=== PATIENT | female | born 1955 | race Caucasian/White ===

== ENCOUNTER 2016-12-09 16:06 | Inpatient (IN) | payer MEDICAID ==
[~2016-12-09] VITALS: Ht 152.4 cm; Wt 55.9 kg
[2016-12-09 17:31] LABS: BASOPHIL % 0.5 % (0-2); PLATELET COUNT 241 x10^3mcL (130-400); RED CELL DISTRIBUTION WIDTH 14.3 % (11.5-14.5)
[2016-12-09 17:37] LABS: CALCIUM 9.4 mg/dL (8.5-10.1); CARBON DIOXIDE 25.4 mmol/L (21-32); CHLORIDE SERUM 101 mmol/L (98-107); CREATININE SERUM 0.6 mg/dL (0.6-1.0); GFR1 > 60 mL/min; GLUCOSE SERUM 135 mg/dL (74-106); POTASSIUM SERUM 3.6 mmol/L (3.5-5.1); SODIUM SERUM 136 mmol/L (136-145)
[2016-12-09 17:42] LABS: ALBUMIN 4.5 g/dL (3.4-5.0); ALKALINE PHOSPHATASE 174 U/L (46-116); ALT/SGPT 125 U/L (14-59); AST/SGOT 34 U/L (15-37); BILIRUBIN TOTAL 0.4 mg/dL (0.20-1.00); LIPASE 180 IU/L (73-393); TOTAL PROTEIN, SERUM 9.3 g/dL (6.4-8.2)
[2016-12-09 17:42] LABS: microscopic required? NO
[2016-12-09 17:50] LABS: UA SPECIFIC GRAVITY 1.015 (1.005-1.035); urine erythrocyte NEGATIVE (NEGATIVE)
[2016-12-09 19:52] VITALS: BP 186/94
[2016-12-09 21:06] VITALS: BP 186/94
[2016-12-09 21:48] LABS: MAGNESIUM 2.3 mg/dL (1.8-2.4); PHOSPHOROUS 2.6 mg/dL (2.5-4.9)
[2016-12-09 21:50] LABS: AMPHETAMINE QUAL UR NONE DETECTED (NEG <=1000)
[2016-12-09 21:58] LABS: T3 TOTAL 1.19 ng/mL
[2016-12-09 21:59] LABS: FREE T4 1.24 ng/dL (0.76-1.46); FREE THYROXINE INDEX 3.4 ug/dL (1.4-4.5); T4(THYROXINE) 9.7 ug/dL (4.7-13.3)
[2016-12-09 23:12] VITALS: BP 129/70
[2016-12-10 05:43] VITALS: BP 140/82
[2016-12-10 06:36] LABS: CALCIUM 8.3 mg/dL (8.5-10.1); CARBON DIOXIDE 27.9 mmol/L (21-32); CHLORIDE SERUM 103 mmol/L (98-107); CHOLESTEROL 167 mg/dL (<200); CHOLESTEROL/HDL RATIO 2.9; CREATININE SERUM 0.5 mg/dL (0.6-1.0); GFR1 > 60 mL/min; GLUCOSE SERUM 212 mg/dL (74-106); HDL CHOLESTEROL 58 mg/dL (40-60); MAGNESIUM 2.1 mg/dL (1.8-2.4); PHOSPHOROUS 3.6 mg/dL (2.5-4.9); POTASSIUM SERUM 4.1 mmol/L (3.5-5.1); SODIUM SERUM 134 mmol/L (136-145); TRIGLYCERIDES 105 mg/dL (<150)
[2016-12-10 06:38] LABS: BASOPHIL % 0.4 % (0-2); PLATELET COUNT 225 x10^3mcL (130-400); RED CELL DISTRIBUTION WIDTH 14.1 % (11.5-14.5)
[2016-12-10 09:40] VITALS: BP 167/90
[2016-12-10 10:36] VITALS: Ht 152.4 cm; Wt 55.9 kg
[2016-12-10 13:42] VITALS: BP 167/89
[2016-12-10 17:09] VITALS: BP 129/71
[2016-12-10 19:25] VITALS: BP 125/80
[2016-12-10 21:41] VITALS: BP 124/77
[2016-12-11 06:14] VITALS: BP 113/67
[2016-12-11 06:55] LABS: CALCIUM 9.2 mg/dL (8.5-10.1); CARBON DIOXIDE 28.9 mmol/L (21-32); CHLORIDE SERUM 103 mmol/L (98-107); CREATININE SERUM 0.7 mg/dL (0.6-1.0); GFR1 > 60 mL/min; GLUCOSE SERUM 167 mg/dL (74-106); MAGNESIUM 2.3 mg/dL (1.8-2.4); PHOSPHOROUS 2.8 mg/dL (2.5-4.9); POTASSIUM SERUM 3.4 mmol/L (3.5-5.1); SODIUM SERUM 137 mmol/L (136-145)
[2016-12-11 07:11] LABS: BASOPHIL % 0.3 % (0-2); PLATELET COUNT 238 x10^3mcL (130-400); RED CELL DISTRIBUTION WIDTH 14.4 % (11.5-14.5)
[2016-12-11 14:15] VITALS: BP 174/91
[2016-12-11 17:50] LABS: LIPASE 896 IU/L (73-393)
[2016-12-11 17:51] LABS: AMYLASE 187 U/L (25-115)
[2016-12-11 18:00] VITALS: BP 137/77
[2016-12-11 21:00] VITALS: BP 121/69
[2016-12-11 22:10] VITALS: BP 121/69
[2016-12-12 06:14] VITALS: BP 133/74
[2016-12-12 07:21] LABS: BASOPHIL % 0.3 % (0-2); PLATELET COUNT 186 x10^3mcL (130-400)
[2016-12-12 07:22] LABS: CALCIUM 8.3 mg/dL (8.5-10.1); CARBON DIOXIDE 26.5 mmol/L (21-32); CHLORIDE SERUM 106 mmol/L (98-107); CREATININE SERUM 0.5 mg/dL (0.6-1.0); GFR1 > 60 mL/min; GLUCOSE SERUM 118 mg/dL (74-106); POTASSIUM SERUM 3.6 mmol/L (3.5-5.1); SODIUM SERUM 141 mmol/L (136-145)
[2016-12-12 07:39] LABS: RED CELL DISTRIBUTION WIDTH 14.7 % (11.5-14.5)
[2016-12-12 16:11] VITALS: BP 135/69
[2016-12-12 21:47] VITALS: BP 134/73
[2016-12-13 06:20] LABS: BASOPHIL % 0.4 % (0-2); PLATELET COUNT 193 x10^3mcL (130-400)
[2016-12-13 06:39] LABS: CALCIUM 8.4 mg/dL (8.5-10.1); CARBON DIOXIDE 27.9 mmol/L (21-32); CHLORIDE SERUM 106 mmol/L (98-107); CREATININE SERUM 0.6 mg/dL (0.6-1.0); GFR1 > 60 mL/min; GLUCOSE SERUM 102 mg/dL (74-106); POTASSIUM SERUM 3.6 mmol/L (3.5-5.1); SODIUM SERUM 141 mmol/L (136-145)
[2016-12-13 06:44] VITALS: BP 112/64
[2016-12-13 07:18] LABS: RED CELL DISTRIBUTION WIDTH 14.6 % (11.5-14.5)
[2016-12-13 09:13] VITALS: BP 130/68
[2016-12-13] MEDS ORDERED: ATORVASTATIN CA40 M1 PO (15:12)
[2016-12-13] MEDS ORDERED: GOOD SENSE ASPI81 M3 PO (15:12)
[2016-12-13] MEDS ORDERED: METFORMIN HCL500 MG PO (15:14)
[2016-12-13] MEDS ORDERED: JANUVIA100 M1 PO (15:14)
[2016-12-13] MEDS ORDERED: COLACE100 MG PO (15:18)
[2016-12-13 15:40] VITALS: BP 130/68
== END 2016-12-13 16:21 | disposition home or self-care (01) | DRG 263 ==
LOC: ED 16:06 → DU 18:38 → MU 18:38 → DU 19:42 → MU 12-11 09:41
PROVIDERS: Emergency Medicine; Family Medicine; Internal Medicine; ADMIT Family Medicine
PROC: 0F798ZZ Dilation of Common Bile Duct, Via Natural or Artificial Opening Endoscopic (ICD-10-PCS; principal; 2016-12-11 09:30)
PROC: BF10YZZ Fluoroscopy of Bile Ducts using Other Contrast (ICD-10-PCS; 2016-12-11 09:30)
PROC: 0FT44ZZ Resection of Gallbladder, Percutaneous Endoscopic Approach (ICD-10-PCS; 2016-12-12)
DX: K80.42 Calculus of bile duct with acute cholecystitis without obstruction (principal); D68.69 Other thrombophilia; E11.65 Type 2 diabetes mellitus with hyperglycemia; E87.6 Hypokalemia; E83.51 Hypocalcemia; I16.0 Hypertensive urgency; K21.9 Gastro-esophageal reflux disease without esophagitis; D64.9 Anemia, unspecified; R91.8 Other nonspecific abnormal finding of lung field; M43.06 Spondylolysis, lumbar region; Z68.24 Body mass index [BMI] 24.0-24.9, adult
CPT/HCPCS: 43262; 82962; 83880; 84439; 94150; C1769; J0330; J1170; J1815; J1885; J2175; J2250; J2270; J2405; J2543; J2704; J3010; J3490; J7030; J7050; J7120; Q0092; Q9967

== ENCOUNTER 2017-01-15 18:03 | Emergency (ER) | payer SELFPAY ==
[~2017-01-15 18:03] MED LIST: ATORVASTATIN CA40 M1 PO; COLACE100 MG PO; GOOD SENSE ASPI81 M3 PO; JANUVIA100 M1 PO; METFORMIN HCL500 MG PO
[2017-01-15 19:20] LABS: BASOPHIL % 0.4 % (0-2); PLATELET COUNT 206 x10^3mcL (130-400); RED CELL DISTRIBUTION WIDTH 14.6 % (11.5-14.5)
[2017-01-15 19:30] LABS: CALCIUM 9.3 mg/dL (8.5-10.1); CARBON DIOXIDE 31.1 mmol/L (21-32); CHLORIDE SERUM 105 mmol/L (98-107); CREATININE SERUM 0.6 mg/dL (0.6-1.0); GFR1 > 60 mL/min; GLUCOSE SERUM 115 mg/dL (74-106); POTASSIUM SERUM 3.6 mmol/L (3.5-5.1); SODIUM SERUM 142 mmol/L (136-145)
[2017-01-15 19:36] LABS: ALBUMIN 3.7 g/dL (3.4-5.0); ALKALINE PHOSPHATASE 126 U/L (46-116); AST/SGOT 23 U/L (15-37); BILIRUBIN TOTAL 0.36 mg/dL (0.20-1.00); CHOLESTEROL 145 mg/dL (<200); PHOSPHOROUS 3.9 mg/dL (2.5-4.9); TOTAL PROTEIN, SERUM 7.9 g/dL (6.4-8.2); URIC ACID 3.5 mg/dL (2.6-6.0)
[2017-01-15 19:47] LABS: HDL CHOLESTEROL 61 mg/dL (40-60)
[2017-01-15 19:59] LABS: ALT/SGPT 30 U/L (14-59)
[2017-01-15 20:36] VITALS: BP 140/85
== END 2017-01-15 21:24 | disposition home or self-care (01) ==
LOC: ED 18:03
PROVIDERS: Emergency Medicine
DX: H81.10 Benign paroxysmal vertigo, unspecified ear (principal); E11.9 Type 2 diabetes mellitus without complications; Z90.89 Acquired absence of other organs
CPT/HCPCS: 83880; J2550; Q0092